=== PATIENT | female | born 1975 | race Caucasian/White ===

== ENCOUNTER 2017-11-16 07:17 | Day surgery (SDC) | payer OTHER ==
[2017-11-14 11:45] VITALS: BMI 22.3
[2017-11-16] MEDS ORDERED: Bupivacaine HCl 0.25% PF (10 ml) Inj ONE (08:20)
[2017-11-16] MEDS ORDERED: Methylene Blue 10 mg/mL(10ml) IV ONE (08:20)
[2017-11-16] MEDS ORDERED: cefOXitin IV 2 gm in Dextrose 2 GM/50 ML BAG IVPB ONE (08:23)
[2017-11-16] MEDS ORDERED: Propofol 10 mg/ml Inj (20 ML) ONE (08:30)
[2017-11-16] MEDS ORDERED: Midazolam 2 MG/2 ML VIAL ONE (08:30)
[2017-11-16] MEDS ORDERED: Rocuronium 10 mg/ml (5 ml) ONE (08:32)
[2017-11-16] MEDS ORDERED: Lactated Ringer's 1,000 ML IV ONE ×2 (09:10→10:02)
[2017-11-16] MEDS ORDERED: Neostigmine Methylsulfate 3mg/3ml Syringe IV ONE (10:23)
[2017-11-16 12:34] VITALS: RESP 16; O2SAT 100
[2017-11-16] MEDS ORDERED: Oxycodone/Acetaminophen 5/325 mg Tab PO PRN (12:48)
--- NOTE | 2017-11-16 14:06 | PCM.SURG1 ---
Surgeon's Initial Post Op Note - Surgeon's Notes Surgeon: Carolyn Quintanilla MD Coding Quality Coordinator: Marlo Moreland MD Type of Anesthesia: General Endo Pre-Operative Diagnosis: Abnormal uterine bleeding, pelvic pain, infertility Operative Findings: 10 week size uterus, cervical stenosis, bilateral ostia visualized, polypoid type tissues noted within cavity, laparascopy, endoemtiral plaques throughout posterior cul de sac , peritoneal side wall, varying in size 1-4cm with some lesiosn noted to be blue vs red, biopsie obtained, heart shape uteurs on laparscopy, normal appearing bowel, liver, anterior adhesions of uteurs anteriolly, patent fallopian tubes, ovaries grossly normal bilatearlly Post-Operative Diagnosis: same as above, endometriosis Operation Performed: Operative laparascopy, resection adn excision of endometriosis, lysis of adhesins, chrompertubation, operative hysterosocpy, dilation and currettage Specimen/Specimens Removed: endocervical currettings, endoemtrial curretttings, perionteal biopsy 1 on left side wall suspcion for enodmetriosos, periotoneal implant #2 anterior suface near uterus suspious for endometrisis Estimated Blood Loss: EBL {In ML}: 5 Blood Products Given: N/A Drains Used: No Drains Date of Surgery/Procedure: 11/16/17 Time of Surgery/Procedure: 09:00
[2017-11-16 16:11] VITALS: BP 108/60; PULSE 64; TEMP 98.9
--- NOTE | 2017-11-16 23:04 | OP ---
PROCEDURE DATE: 11/16/2017 PREOPERATIVE DIAGNOSES: Abnormal uterine bleeding, pelvic pain. POSTOPERATIVE DIAGNOSES: Abnormal uterine bleeding, pelvic pain, moderate endometriosis. OPERATIVE FINDINGS: A 10 weeks sized uterus, cervical stenosis, bilateral ostia visualized. Polypoid tissue noted within cavity, laparoscopy, endometrial plaques noted in the posterior cul-de-sac, peritoneal side wall, varying in size 1 to 4 cm, some lesions appeared to be blue versus red, biopsies obtained, heart shaped uterus on laparoscopy, normal appearing liver, anterior adhesions of uterus and fallopian tubes, ovaries grossly normal bilaterally. OPERATION PERFORMED: Operative laparoscopy with resection and excision of endometriosis, lysis of adhesions, chromopertubation, operative hysteroscopy, dilation and curettage. SPECIMEN REMOVED: Endocervical curettings, endometrial cuttings, peritoneal biopsies one and two on left side wall and off the anterior cervix and uterus. SURGEON: Carolyn Quintanilla MD. MATERIAL HANDLING TECHNICIAN: Marlo Moreland MD. TYPE OF ANESTHESIA: General endotracheal. ESTIMATED BLOOD LOSS: 500 mL. BLOOD PRODUCTS: None. COMPLICATIONS: None. DESCRIPTION OF PROCEDURE: Prior to the procedure, the patient was counseled on risks, benefits, alternatives, indications of diagnostic laparoscopy and operative hysteroscopy prior to the procedure. Risks, benefits, and alternatives, indications were discussed with the patient, consent was signed and the patient proceeded to the operating room. The patient was transferred to the operating room where she was given general anesthesia. The patient was placed on the dorsal supine position with the legs supported using stirrups. The patient was prepped and draped in the usual sterile fashion. A timeout confirmed correct patient and correct procedure. Bimanual exam was performed with the above-mentioned findings. A Goode catheter was inserted into the urethra and a Tate retractor was placed in the anterior and posterior fornix of the vagina. Cervix was adequately visualized. A single-tooth tenaculum was placed in the anterior lip of the cervix. Cervix appeared stenotic. Following this, endocervical curettings were obtained with a Bagnian curette and sent to pathology on [facility]. Uterus was then sounded to 9 cm. Following this, the cervix was sequentially dilated to allow for introduction of 5-mm hysteroscope under direct visualization using normal saline as the distention media. Upon entering, bilateral ostia were visualized, polypoid tissue less than 1 cm was noted within the endometrial cavity along the left uterine wall. Following this, the hysteroscope was then removed and a gentle curettage was done with polypoid tissue removed and the specimen sent to pathology. Following this, a uterine HUMI manipulator was then inserted under direct visualization. An 8 mL of air was then insufflated to keep the uterine manipulator in place. Following this, the surgeon re-gloved and attention was then turned to the abdomen, in which 5-mm infraumbilical skin incision was made after giving 0.5, 2 mL of Marcaine. Infraumbilically, skin incision was made and the skin was then tented up using 2 towel clips, and after the skin incision, the Veress needle was then inserted. After 2 clicks were heard, a saline test was then performed. The CO2 gas was then inserted and there was confirmation of placement of the Veress needle. The abdomen was then insufflated to a pressure of 15 mmHg. Following this, the Veress needle was then inserted and a 5 mm trocar was laparoscopically inserted under direct visualization. Upon visualization of the peritoneal cavity, there was gross endometriosis and plaques noted throughout the abdomen and the uterus appeared to be heart shaped. Following this, two 5-mm skin incisions were made in the right and left lower quadrants respectively after giving 0.5 mL of Marcaine respectively and inserting a blunt trocar under direct visualization. The patient was then placed in Trendelenburg position and the bowel was then removed out of the operative field using a blunt probe. Following this, the uterus was then anteverted and both tubes and ovaries were resected. The endometriotic implants were then biopsied carefully and there was good hemostasis noted. The remaining endometriotic lesions were then carefully cauterized using a bipolar device with normal saline gently. Following this, the chromopertubation was then performed and there was patency of both bilateral fallopian tubes noted. The abdomen was then irrigated and clamped and the fluid was then aspirated. There was good hemostasis noted at all aspiration sites. All instruments were removed. There was good hemostasis in all operative sites. Prior to doing the chromopertubation, anterior abdominal wall lesions were noted and were carefully lysed using traction and careful dissection. All instruments were removed. The trocars were then removed under direct visualization. The abdomen was desufflated. There was good hemostasis noted. The skin was reapproximated and closed with 3-0 Monocryl in a running subcuticular fashion. The HUMI uterine manipulator was then removed from the uterus and the Goode catheter was removed. At the end of the procedure, all needle, sponge, and instrument counts were noted to be correct x2. The patient tolerated the procedure and was transferred to the recovery room in stable condition. Carolyn Quintanilla MD
== END 2017-11-16 16:24 | disposition home or self-care (01) ==
LOC: C.SDS 07:17
PROVIDERS: ATTEND Obstetrics & Gynecology
DX: N80.0 Endometriosis of uterus (principal); R10.2 Pelvic and perineal pain; N93.9 Abnormal uterine and vaginal bleeding, unspecified
CPT/HCPCS: 36415; 58558; 86850; 86900; 88305; J0694; J1100; J1170; J2250; J2405; J2704; J2710; J3010; J7120